=== PATIENT | male | born 1975 | race Caucasian/White ===

== ENCOUNTER 2018-02-17 12:44 | Emergency (ER) | payer OTHER ==
[~2018-02-17] VITALS: Ht 177.8 cm; Wt 114.3 kg
[2018-02-17 12:50] VITALS: Ht 177.8 cm; Wt 114.3 kg
[2018-02-17 13:39] LABS: PLATELET COUNT 245 x10^3mcL (130-400); RED CELL DISTRIBUTION WIDTH 13.6 % (11.5-14.5)
[2018-02-17 13:41] LABS: CALCIUM 9.2 mg/dL (8.5-10.1); CARBON DIOXIDE 28.9 mmol/L (21-32); CREATININE SERUM 1.4 mg/dL (0.7-1.3)
[2018-02-17 13:46] LABS: BILIRUBIN TOTAL 0.44 mg/dL (0.20-1.00); TOTAL PROTEIN, SERUM 7.5 g/dL (6.4-8.2)
[2018-02-17 14:19] LABS: BAND NEUTROPHIL 2 % (0-10); BASOPHIL 0 % (0-2); MONOCYTE 5 % (0-7); PLATELET MORPHOLOGY PLATELETS NORMAL; SEGMENTED NEUTROPHILS 41 % (37-75)
[2018-02-17 14:54] VITALS: BP 159/101
== END 2018-02-17 14:54 | disposition home or self-care (01) ==
LOC: ED 12:44
PROVIDERS: Emergency Medicine
DX: R10.11 Right upper quadrant pain (principal); R10.13 Epigastric pain; R42 Dizziness and giddiness; E78.00 Pure hypercholesterolemia, unspecified
CPT/HCPCS: 36415; J1885; Q0092